=== PATIENT | male | born 1955 | race Caucasian/White ===

== ENCOUNTER 2024-04-13 14:10 | Emergency (ER) | payer MEDICARE, OTHER, SELFPAY ==
[2024-04-13 14:14] VITALS: BP 138/76
[2024-04-13 14:50] LABS: INR 1.07; PT 13.8 Sec (11.4-14.6)
[2024-04-13 14:51] LABS: APTT 28.6 Sec (23.4-35.0)
[2024-04-13 14:53] LABS: Hematocrit 36.6 % (39.0-52.0); Hemoglobin 12.9 g/dL (13.0-18.0); Mean Corp Hgb Conc. 35.2 g/dL (33.0-37.0); Mean Corpuscular Hgb 30.9 pg (27.0-31.0); Mean Corpuscular Volume 87.8 fL (80.0-94.0); Mean Platelet Volume 10.3 fL (7.4-10.4); Platelet Count 246 10^3/uL (130-400); Red Blood Cell Count 4.17 10^6/uL (4.70-6.10); Red Cell Dist. Width 12.2 % (11.5-14.5); White Blood Cell Count 6.2 10^3/uL (4.8-10.8)
[2024-04-13 15:23] LABS: ALT (SGPT) 45 U/L (0-50); AST (SGOT) 46 U/L (17-59); Albumin 4.5 g/dl (3.5-5.0); Alkaline Phosphatase 72 U/L (38-126); Blood Urea Nitrogen 16 mg/dl (9-20); Calcium 9.6 mg/dl (8.4-10.2); Carbon Dioxide 25 mmol/L (22-30); Chloride 104 mmol/L (98-107); Glucose 100 mg/dl (70-99); Potassium 4.3 mmol/L (3.5-5.1); Sodium 138 mmol/L (135-145); Total Bilirubin 0.5 mg/dl (0.2-1.3); Total Protein 7.3 g/dl (6.3-8.2); eGFR > 60.00
[2024-04-13 15:53] LABS: % Basophils 0.8 % (0-2); % Eosinophils 2.2 % (0-6); % Immature Granulocytes 0.5 % (0-0.5); % Lymphocytes 33.4 % (20.5-51.1); % Monocytes 10.8 % (1.7-9.3); % Neutrophils 52.3 % (42.2-75.2); Absolute Basophils 0.1 10^3/uL (0-0.2); Absolute Eosinophils 0.1 10^3/uL (0-0.7); Absolute Lymphocytes 2.1 10^3/uL (1.2-3.4); Absolute Monocytes 0.7 10^3/uL (0.1-0.6); Absolute Neutrophils 3.3 10^3/uL (1.4-6.5); Nucleated Red Blood Cells % 0 % (-)
[2024-04-13 16:09] VITALS: BP 122/94
[2024-04-13 16:28] VITALS: BMI 26.8
[2024-04-13 16:30] LABS: Lipase 134 U/L (23-300)
--- NOTE | 2024-04-13 16:31 | ED.GENMED ---
History of Present Illness
General
Chief Complaint: Abdominal Symptoms
Source: patient
Exam Limitations: none
Time Seen by Provider: 04/13/24 16:07
History of Present Illness
History of Present Illness:
68-year-old male presents with several weeks worth of loose stool he notes 2-3 episodes of diarrhea daily. Today he noted a dark black/maroon-colored bowel movement. Since then he has had multiple other bowel movements without any dark or
maroon-colored. He takes ibuprofen daily. He drinks 2 martinis daily. No regular caffeine use. He is not anticoagulated otherwise. He is not on any antacids. He notes mid abdominal pain. No vomiting. No other complaints at this time.
Phy Exam
Physical Exam
Physical Exam:
General: Well-appearing male no acute respiratory distress
HEENT: Normocephalic atraumatic neck is supple
Heart: Regular rate and rhythm no murmurs
Lungs: Clear no wheeze or rales abdomen is soft tender to the mid abdomen mild guarding no rebound normal bowel sounds nondistended
Rectal exam: Brown stool heme-negative no hemorrhoids
Extremities: No cyanosis
Course
Orders/Labs/Results
Orders:
Orders
04/13/24 14:24
Type+Screen Urgent
Complete Blood Count/With Diff Urgent
Comprehensive Metabolic Panel Urgent
Lipase Urgent
PTT Urgent
Prothrombin Time Urgent
04/13/24 16:26
CT Abd/pelvis W Iv Cont Urgent
Comment:
Reason For Exam: abdominal pain, diarrhea
Abnormal Lab Results
04/13/24
14:24
RBC 4.17 L 10^6/uL
(4.70-6.10)
Hgb 12.9 L g/dL
(13.0-18.0)
Hct 36.6 L %
(39.0-52.0)
Absolute Monos (auto) 0.7 H 10^3/uL
(0.1-0.6)
Monocytes % 10.8 H %
(1.7-9.3)
Glucose 100 H mg/dl
(70-99)
04/13/24 14:24
04/13/24 14:24
Vital Signs
Initial and Last Documented VS:
Initial Vital Signs
Temp Pulse Resp BP Pulse Ox
98.3 F 67 16 138/76 98
04/13/24 14:14 04/13/24 14:14 04/13/24 14:14 04/13/24 14:14 04/13/24 14:14
Last Documented Vital Signs
Temp Pulse Resp BP Pulse Ox
98.0 F 61 13 140/77 98
04/13/24 18:00 04/13/24 17:43 04/13/24 17:43 04/13/24 18:42 04/13/24 18:00
MDM/Problems Addressed
Differential Diagnosis Includes:
Ongoing diarrhea now with abdominal pain and dark-colored stool this morning. Since then he has had normal colored stool. Stools heme-negative on my assessment. Hemoglobin is 12.9. He does use NSAIDs regularly as well as alcohol regularly.
Question possible gastritis versus ulcer however given the tenderness on exam will order CT scan to evaluate for colitis or other infectious source. He has had stool cultures recently which have been negative.
*Critical Care Note
Total Time (30-74mins, 75-104mins- exclusive of procedures): Not Applicable
Update Note
Update Note:
No bloody bowel movements here. Vital signs remained stable. Hemoglobin 12.9. CT shows no acute finding. Suspect possible gastritis. Recommend antacids and avoidance of NSAIDs. Stable for discharge with follow-up.
ED Attending Note
-
Portions of this chart may have been created with voice recognition software.� Occasional wrong word or��sound alike� substitutions may have occurred due to the inherent limitations of voice recognition software.
Discharge Plan
Departure
Patient Disposition: Home (Routine Discharge)
Date of Disposition: 04/13/24
Time of Disposition: 19:17
Patient with high blood pressure during this ER visit?: No
Discharge Problem:
Diarrhea
Instructions: Diarrhea in teens and adults, Abdominal Pain
Referrals:
UNKNOWN - PT DOES,NOT KNOW [Family Provider] -
Activity Restrictions/Additional Instructions:
Avoid NSAID's and alcohol. use Prilosec OTC. Return if worse, otherwise follow up with PMD or GI.
Interventions
Interventions:
*Risk Screen - Suicide Last Done: 04/13/24 14:14
*General Assessment Last Done: 04/13/24 14:14
*Neglect/Abuse Screening Last Done: 04/13/24 14:14
ZY-Fljpyh-Fjtzbkfgtl Assessment Last Done: 04/13/24 16:12
Discharge Date and Time
Print Language: ARMENIAN
[2024-04-13 18:00] VITALS: BP 140/77
[2024-04-13 18:42] VITALS: BP 140/77
== END 2024-04-13 19:53 | disposition home or self-care (01) ==
LOC: EMR 14:10
PROVIDERS: Emergency Medicine; EMERGENCY PHYSICIAN Student in an Organized Health Care Education/Training Program
DX: R19.7 Diarrhea, unspecified (principal); R10.9 Unspecified abdominal pain
CPT/HCPCS: 99284; 74177; 80053; 83690; 85025; 85610; 85730; 86850; 86900; 86901; Q9967

== ENCOUNTER → 2024-05-15 06:21 | Day surgery (SDC) | payer MEDICARE, OTHER, SELFPAY | LOC: GI 06:21 | PROVIDERS: ATTENDING PHYSICIAN Internal Medicine Gastroenterology | DX: K57.30 Diverticulosis of large intestine without perforation or abscess without bleeding (principal); K64.8 Other hemorrhoids; R19.7 Diarrhea, unspecified | CPT/HCPCS: 45380; 88305 ==